=== PATIENT | female | born 2000 | race American Indian/Alaskan Native ===

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

== ENCOUNTER 2020-02-13 21:36 | Outpatient (CLI) | payer MEDICAID ==
[2020-02-13 22:07] VITALS: BP 132/87
[2020-02-13] MEDS ORDERED: LACTATED RINGERS 1,000 ML ONE (22:24)
[2020-02-13] MEDS ORDERED: ACETAMINOPHEN 500 MG TAB PO ONE (22:32)
[2020-02-13] MEDS ORDERED: LACTATED RINGERS 500 ML IV ONE (23:00)
[2020-02-13] MEDS ORDERED: TERBUTALINE 1 MG/1 ML INJ SUB-Q SCH (23:00)
[2020-02-13 23:04] LABS: Basophils % (Auto) 0.4 % (0.0-1.8); Eosinophils % (Auto) 0.5 % (0.0-4.3); Hematocrit 29.9 % (30.3-42.9); Hemoglobin 10.2 gm/dl (10.1-14.3); Lymphocytes # (Auto) 2.2 K/mm3 (1.2-5.4); Lymphocytes % (Auto) 22.7 % (13.4-35.0); Mean Corpuscular HGB Conc 34 % (30-34); Mean Corpuscular Volume 97 fl (79-97); Monocytes # (Auto) 0.9 K/mm3 (0.0-0.8); Monocytes % (Auto) 9.3 % (0.0-7.3); Platelet Count 183 K/mm3 (140-440); Red Blood Count 3.08 M/mm3 (3.65-5.03); Red Cell Distribution Width 13.4 % (13.2-15.2)
[2020-02-13 23:12] LABS: Bacteria,Urine 1+ /HPF (Negative); Bilirubin,Urine NEG (Negative); Blood,Urine NEG (Negative); Color,Urine Yellow (Yellow); Mucus,Urine FEW /HPF; Protein,Urine <15 mg/dL mg/dL (Negative)
--- NOTE | 2020-02-14 00:34 | Ultrasound Report ---
ULTRASOUND BIOPHYSICAL PROFILE INDICATION / CLINICAL INFORMATION: . Evaluate well-being COMPARISON: Obstetrical ultrasound, 07/25/2019 FINDINGS: BREATHING MOVEMENT = 2 GROSS BODY MOVEMENT = 2 TONE = 2 QUALITATIVE AMNIOTIC FLUID VOLUME = 2 TOTAL BIOPHYSICAL SCORE = 01/27 AMNIOTIC FLUID INDEX (cm) = 7.3 PRESENTATION: Cephalic. HEART RATE (beats per minute): 131 IMPRESSION: 1. biophysical profile = 01/27 Signer Name: Unique Mata MD Signed: 02/14/2020 12:30 AM Workstation Name: [id number]
--- NOTE | 2020-02-14 00:44 | Event Note ---
Date: 02/14/20 (Pt feeling abdominal pain) Pt is a 20 y.o. @ 36 wks no PNC. Per ultrasound done on 07/25/2019 pt is around 35.2 wks but per pt she is 36 wks. She states that she is to deliver at [facility] [place], but "hasn't been to the doctor in a long time". Presented to triage with c/o lower abdominal pain that started after sexual intercourse a few hours ago. EFM was initiated and pt was found to be having ctxs every 2-4 minutes apart. She denied LOF, and vaginal bleeding. Attempted speculum exam but was unable to complete d/t pt stating that " it hurt too bad". Touched nitrazine paper to introitus and the results were inconclusive. Perineum and exam glove were without bleeding after cervical exam. Cervical exam was cl/th/hi. Large amount of abrasions were noted at the introitus. monitor tracing was a category 1 throughout triage stay. Ultrasound was ordered and BPP was found to be 8/8 and ELAYNE 7.3. Pt refused terb stating that her mother told her not to take any medication that would stop her from having ctxs. She did agree to receiving some IV fluids. Pt also stated to RN that she had some SI in the past, but is NOT having any this admission and has NO thoughts of harming herself, or anyone else. Upon discharge from triage ctxs had stopped and pt states that she was feeling better and would like to be discharged home. Pt was given labor precautions and to follow up with an OBGYN of her choice DENISE. Pt verbalized understanding of these instructions.
--- NOTE | 2020-02-14 00:56 | Ultrasound Report ---
Examination: Ultrasound Obstetrical Limited, 02/13/2020 INDICATION: Evaluate well being. COMPARISON: Obstetrical ultrasound [facility], 02/13/2020 FINDINGS: There is a single living intrauterine with the head in the cephalic position. Amniotic flui d index measures 7.3 cm, which is within normal limits. The heart rate is 131 beats per minute. IMPRESSION: Limited obstetrical ultrasound with details as above. Signer Name: Unique Mata MD Signed: 02/14/2020 12:52 AM Workstation Name: [id number]
--- NOTE | 2020-02-14 10:07 | Consultation ---
History of Present Illness - Reason for Consult Consult date: 02/14/20 Reason for consult: MHE Requesting physician: SANJUANITA ERWIN - Chief Complaint Chief complaint: Depression - History of Present Psychiatric Illness Per OBGYN NOte: Pt is a 20 y.o. @ 36 wks no PNC. Per ultrasound done on 07/25/2019 pt is around 35.2 wks but per pt she is 36 wks. She states that [place] [facility] [place] but "hasn't been to the doctor in a long time". Presented to triage with c/o lower abdominal pain that started after sexual intercourse a few hours ago. EFM was initiated and pt was found to be having ctxs every 2-4 minutes apart. She denied LOF, and vaginal bleeding. Attempted speculum exam but was unable to complete d/t pt stating that " it hurt too bad". Touched nitrazine paper to introitus and the results were inconclusive. Perineum and exam glove were without bleeding after cervical exam. Cervical exam was cl/th/hi. Large amount of abrasions were noted at the introitus. monitor tracing was a category 1 throughout triage stay. Ultrasound was ordered and BPP was found to be 8/8 and ELANYE 7.3. Pt refused terb stating that her mother told her not to take any medication that would stop her from having ctxs. She did agree to receiving some IV fluids. Pt also stated to RN that she had some SI in the past, but is NOT having any this admission and has NO thoughts of harming herself, or anyone else. Upon discharge from triage ctxs had stopped and pt states that she was feeling better and would like to be discharged home. Pt was given labor precautions and to follow up with an OBGYN of her choice DENISE. Pt verbalized understanding of these instructions. PSYCH HPI Patient was discharged prior to been seen per OBGYN NOte. Medications and Allergies Allergies Allergy/AdvReac Type Severity Reaction Status Date / Time No Known Allergies Allergy Verified 07/25/19 22:39 Home Medications Medication Instructions Recorded Confirmed Last Taken Type Naproxen [Naprosyn] 500 mg PO BID #14 tablet 10/10/18 Unknown Rx Acetaminophen [Acetaminophen TAB] 500 mg PO Q6HR PRN #30 tablet 07/26/19 Unknown Rx Cyclobenzaprine [Flexeril] 10 mg PO Q8H PRN #12 tablet 07/26/19 Unknown Rx Promethazine [Phenergan] 25 mg PO Q6HR PRN #30 tab 07/26/19 Unknown Rx Mental Status Exam - Vital signs Last Vital Signs Temp 98.2 F 02/13/20 21:59 Pulse 92 H 02/13/20 22:30 Resp 18 02/13/20 21:59 BP 132/87 02/13/20 22:06 Pulse Ox 96 02/13/20 22:30 Results Result Diagrams: 02/13/20 Unknown Abnormal lab results 02/13/20 Range/Units Unknown RBC 3.08 L (3.65-5.03) M/mm3 Hct 29.9 L (30.3-42.9) % MCH 33 H (28-32) pg [place] % (Auto) 9.3 H (0.0-7.3) % [place] # 0.9 H (0.0-0.8) K/mm3 All other labs normal.
== END 2020-02-14 00:40 | disposition home or self-care (01) ==
LOC: TRG 21:36 → APU 21:37 → TRG 02-14 00:40
PROVIDERS: ATTEND Obstetrics & Gynecology
DX: O62.9 Abnormality of forces of labor, unspecified (principal); O99.613 Diseases of the digestive system complicating pregnancy, third trimester; K62.89 Other specified diseases of anus and rectum; O99.343 Other mental disorders complicating pregnancy, third trimester; F32.9 Major depressive disorder, single episode, unspecified; Z87.891 Personal history of nicotine dependence; Z3A.36 36 weeks gestation of pregnancy
CPT/HCPCS: 36415; 59025; 76815; 76819; 81001; 85025; 86592; 86706; 86762; 86803; 86850; 86900; 86901; 87086; 87806; J7120; 96360; J3105

== ENCOUNTER 2020-02-19 22:00 | Outpatient (CLI) | payer MEDICAID ==
[2020-02-19 23:04] VITALS: BP 139/89
== END 2020-02-19 23:23 | disposition home or self-care (01) ==
LOC: TRG 22:00 → APU 22:01 → TRG 23:23
PROVIDERS: ATTEND Obstetrics & Gynecology
DX: O47.03 False labor before 37 completed weeks of gestation, third trimester (principal); Z3A.36 36 weeks gestation of pregnancy
CPT/HCPCS: 59025